=== PATIENT | female | born 2000 | race African-American/Black ===

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

== ENCOUNTER 2018-04-28 17:44 | Emergency (ER) | payer BC ==
--- NOTE | 2018-04-28 20:29 | XR ---
Single view EXAMINATION TYPE: XR foot complete RT DATE OF EXAM: 04/28/2018 COMPARISON: NONE HISTORY: Pain TECHNIQUE: 3 views FINDINGS: Metatarsals appear intact. I see no fracture nor dislocation. Joint spaces are normal. IMPRESSION: Negative right foot exam.
--- NOTE | 2018-04-28 20:31 | XR ---
EXAMINATION TYPE: XR ankle complete RT DATE OF EXAM: 04/28/2018 COMPARISON: NONE HISTORY: Ankle pain TECHNIQUE: 3 views FINDINGS: Ankle mortise is anatomic. I see no fracture nor dislocation. Joint spaces are normal. IMPRESSION: Negative right ankle exam.
--- NOTE | 2018-04-28 20:52 | ED ---
General Adult HPI - General Chief complaint: Extremity Injury, Lower Stated complaint: Foot Injury Time Seen by Provider: 04/28/18 19:43 Source: patient, family, RN notes reviewed Mode of arrival: ambulatory Limitations: no limitations - History of Present Illness Initial comments: 17-year-old female presents to the emergency department for a chief complaint of right foot pain times one day. Patient states that earlier this morning she hit her toes on a baseboard. Patient states it has been painful since that time. Patient states it has began to bruise as well. Patient was able to work today while walking on it. Patient states she wants to make sure it isn't broken. Patient did not sustain any other injuries or fall or hit her head. Patient has never had surgery on that foot before. Patient has no other complaints at this time including shortness of breath, chest pain, abdominal pain, nausea or vomiting, headache, or visual changes. - Related Data Home Medications Medication Instructions Recorded Confirmed No Known Home Medications 11/30/16 04/28/18 Allergies Allergy/AdvReac Type Severity Reaction Status Date / Time No Known Allergies Allergy Verified 04/28/18 19:19 Review of Systems ROS Statement: Those systems with pertinent positive or pertinent negative responses have been documented in the HPI. ROS Other: All systems not noted in ROS Statement are negative. Past Medical History Past Medical History: No Reported History History of Any Multi-Drug Resistant Organisms: MRSA Date of last positivie culture/infection: 12/19/2015 MDRO Source:: BUTTOCK Past Surgical History: No Surgical Hx Reported Past Psychological History: No Psychological Hx Reported Smoking Status: Current every day smoker Past Alcohol Use History: Occasional Past Drug Use History: Marijuana General Exam Limitations: no limitations General appearance: alert, in no apparent distress Head exam: Present: atraumatic, normocephalic, normal inspection Eye exam: Present: normal appearance. Absent: scleral icterus, conjunctival injection ENT exam: Present: normal exam, mucous membranes moist Neck exam: Present: normal inspection, full ROM. Absent: tenderness, meningismus, lymphadenopathy Respiratory exam: Present: normal lung sounds bilaterally. Absent: respiratory distress, wheezes, rales, rhonchi, stridor Cardiovascular Exam: Present: regular rate, normal rhythm, normal heart sounds. Absent: systolic murmur, diastolic murmur, rubs, gallop, clicks Extremities exam: Present: tenderness (Tenderness of the second and third digits as well as second and third metatarsal heads), normal capillary refill ( Capillary refill less than 2 seconds and pedal pulse 2+ in the right lower extremity), joint swelling (Patient has mild swelling and ecchymosis noted to the second and third digits of the right foot), other (Sensation intact to the second and third digits as well as the rest of the right foot). Absent: full ROM (Full range of motion of the right ankle. Patient has limited range of motion of the second and third digits due to pain), calf tenderness Neurological exam: Present: alert, oriented X3, CN II-XII intact Psychiatric exam: Present: normal affect, normal mood Course Vital Signs 04/28/18 19:15 Temperature 98.7 F Pulse Rate 86 Respiratory 20 Rate O2 Sat by Pulse 100 Oximetry Medical Decision Making - Medical Decision Making 17-year-old female process the emergency determine for chief complaint of right foot pain after stubbing foot on a baseboard. Patient has ecchymosis of the second and third digits and has limited range of motion of these digits. Full range motion of the right ankle. Neurovascular intact in the right lower extremity. X-ray of the right foot shows no fracture or dislocation. X-ray of the ankle is negative for fracture or dislocation. Patient likely has a contusion of the second and third toes. However patient is aware that if symptoms do not resolve in 7-10 day she may need repeat x-rays. I did offer giving patient a work note as well as crutches which she refuses. Patient was wrapped with an Oleg wrap. She was educated on rice therapy. She will follow- up in one to 2 days with primary care. She was also given orthopedics number in case she does not have resolving symptoms. Disposition Clinical Impression: Contusion of foot, right Disposition: HOME SELF-CARE Condition: Good Instructions: Foot Contusion (ED) Additional Instructions: Please rest ice and elevate the right foot. Take Motrin or Tylenol for pain. Please use Olge wrap as needed. Follow-up with primary care in 1-2 days. If symptoms worsen or do not resolve return to the emergency department. As discussed, you may need repeat x-rays in 7-10 days if symptoms are not improving. Is patient prescribed a controlled substance at d/c from ED?: No Referrals: Montez Caro MD [STAFF PHYSICIAN] - 1-2 days Time of Disposition: 20:50
[2018-04-28 21:07] VITALS: BP 123/78; PULSE 82; RESP 18; TEMP 98.3
== END 2018-04-28 21:07 | disposition home or self-care (01) ==
LOC: EC 17:44
DX: S90.31XA Contusion of right foot, initial encounter (principal); F17.200 Nicotine dependence, unspecified, uncomplicated; Z86.14 Personal history of Methicillin resistant Staphylococcus aureus infection; W22.8XXA Striking against or struck by other objects, initial encounter; Y92.009 Unspecified place in unspecified non-institutional (private) residence as the place of occurrence of the external cause
CPT/HCPCS: 99283

== ENCOUNTER 2019-07-28 05:15 | Inpatient (IN) | payer BC, OTHER ==
[2019-07-28] MEDS: LACTATED RINGERS 1,000 ML IV SCH ×2 (06:05→06:42)
[2019-07-28] MEDS ORDERED: LIDOCAINE 0.5% (PF) 5 MG/ML (50 ML SDV) SQ PRN (06:10)
[2019-07-28] MEDS ORDERED: TERBUTALINE 1 MG/ML VIAL SQ PRN (06:10)
[2019-07-28] MEDS ORDERED: CARBOPROST TROMETHAMINE 250 MCG/ML 1 ML AMP IM PRN (06:10)
[2019-07-28] MEDS ORDERED: OXYTOCIN 10 UNIT/ML 1 ML VIAL IM PRN (06:10)
[2019-07-28] MEDS ORDERED: METHYLERGONOVINE 0.2 MG/ML 1 ML AMP IM PRN (06:10)
[2019-07-28 06:27] VITALS: BMI 27.7
[2019-07-28 06:32] LABS: Basophils % (A) 0 %; Eosinophils # (A) 0.1 k/uL (0-0.7); Eosinophils % (A) 1 %; HCT 33.4 % (34.0-46.0); HGB 11.1 gm/dL (11.4-16.0); Lymphocytes # (A) 2.4 k/uL (1.0-4.8); Lymphocytes % (A) 23 %; MCH 30.4 pg (25.0-35.0); MCHC 33.2 g/dL (31.0-37.0); MCV 91.5 fL (80.0-100.0); Mean Platelet Volume 6.3; Monocytes # (A) 0.5 k/uL (0-1.0); Monocytes % (A) 4 %; Neutrophils # (A) 7.3 k/uL (1.3-7.7); Neutrophils % (A) 69 %; Platelet Count 272 k/uL (150-450); RBC 3.65 m/uL (3.80-5.40); RDW 12.7 % (11.5-15.5); WBC 10.6 k/uL (3.8-10.6)
[2019-07-28] MEDS ORDERED: ROPIVACAINE 5MG/ML 20ML VIAL ONE (06:47)
[2019-07-28] MEDS ORDERED: fentaNYL (PF) 50 MCG/ML 5 ML AMP ONE (06:47)
[2019-07-28] MEDS ORDERED: SODIUM CHLORIDE 0.9% 100 ML BAG ONE (06:47)
--- NOTE | 2019-07-28 06:49 | P.HPOB ---
History of Present Illness H&P Date: 07/28/19 Chief Complaint: Contractions This patient is a pleasant 19-year-old 1 para 0 female estimated date of confinement 08/05/2019 estimated gestational age 38-6/7 weeks who presents to labor and delivery with complaints of contractions since about 1:00 this morning. Patient's cervix initially was 3 cm dilated is now 5 simmers dilated in active labor. care is per Dr. Lepe appears to be uncomplicated. She does smoke cigarettes but has cut way back. Review of Systems Genitourinary: Reports Menstruation: Reports amenorrhea Past Medical History Past Medical History: No Reported History Additional Past Medical History / Comment(s): The father the baby is a sickle cell carrier. History of Any Multi-Drug Resistant Organisms: MRSA Date of last positivie culture/infection: 12/19/2015 MDRO Source:: BUTTOCK Past Surgical History: No Surgical Hx Reported Additional Past Surgical History / Comment(s): [place] teeth extraction Past Anesthesia/Blood Transfusion Reactions: No Reported Reaction Past Psychological History: No Psychological Hx Reported Smoking Status: Current every day smoker Past Alcohol Use History: Occasional Past Drug Use History: Marijuana - Past Family History Father Family Medical History: Diabetes Mellitus Medications and Allergies Home Medications Medication Instructions Recorded Confirmed Type Pnv No.95/Ferrous Fum/Folic AC 1 each PO DAILY 07/28/19 07/28/19 History [ Multivitamin Tablet] Allergies Allergy/AdvReac Type Severity Reaction Status Date / Time No Known Allergies Allergy Verified 07/28/19 05:21 Exam Vital Signs Temp Pulse Resp BP 07/28/19 06:22 97.6 F 84 18 129/70 Intake and Output 07/27/19 07/27/19 07/28/19 14:59 22:59 06:59 Other: Weight 85.275 kg - OBG Physical Exam Abdomen: bowel sounds normal, no diffuse tenderness, no bruit present, no guarding noted, no hepatomegaly, no splenomegaly, no mass Vulva: both: normal Vagina: normal moisture, no discharge Cervix: no lesion (Cervix is 5 cm dilated completely effaced -1 station), no discharge Uterus: enlarged (Fundal height in the office was 39 cm) Results blood work shows she is O positive, hepatitis B negative, RPR nonreactive, rubella immune, HIV is nonreactive, hemoglobin electrophoresis shows her to be with adult hemoglobin A. Anatomy ultrasounds normal. Quad screen testing was negative. Result Diagrams: 07/28/19 06:10 Abnormal Lab Results - Last 24 Hours (Table) 07/28/19 Range/Units 06:10 RBC 3.65 L (3.80-5.40) m/uL Hgb 11.1 L (11.4-16.0) gm/dL Hct 33.4 L (34.0-46.0) % Assessment and Plan Assessment: This is a pleasant 19-year-old 1 para 0 female 39-0/7 weeks gestation admitted to labor and delivery in active labor. Plan is pain control with epidural per patient request and anticipate vaginal delivery. (1) 39 weeks gestation of Current Visit: Yes Status: Acute Code(s): Z3A.39 - 39 WEEKS GESTATION OF SNOMED Code(s): 04529666 (2) Normal labor Current Visit: Yes Status: Acute Code(s): O80 - ENCOUNTER FOR FULL-TERM UNCOMPLICATED DELIVERY; Z37.9 - OUTCOME OF DELIVERY, UNSPECIFIED SNOMED Code(s): 08749672
[2019-07-28] MEDS ORDERED: OXYTOCIN 30 UNITS/500 ML NS 30 UNIT in SALINE 1 500ML.BAG IV SCH (07:30)
--- NOTE | 2019-07-28 10:44 | P.PROBDLV ---
Vaginal Delivery Note - . Vaginal Delivery Note: Normal spontaneous vaginal delivery viable male infant Apgars 9 and 9 delivery time was 1024 hrs. Please see dictated H&P for intimate details of this patient's admission. Brief summary this is a pleasant 19-year-old 1 para 0 female 38-6/7 weeks gestation admitted to labor and delivery with complaint of contractions was initially 3 cm dilated and does go to 5 cm dilated thought to be in active labor. Patient is artificial rupture membranes for clear fluid. Labor progresses and she does get an epidural for pain control. Patient pushes for approximately 15 or 20 minutes and pushes the head to the perineum. The posterior perineum was supported and we have controlled delivery of the infant's head over the intact perineum. Mouth and nares are bulb suctioned. There is no evidence of a nuchal cord. With gentle downward traction we then have deliver the anterior and posterior shoulder and rest this infant's body. This is a vigorous viable male infant Apgars are 9 and 9 delivery time is 1024 hrs. After delivery of the the umbilical cord is allowed to quit pulsating, it is then doubly clamped and cut. It appears to be trivascular. The placenta is then spontaneously delivered intact. Estimated blood loss is 150 mL. There is a superficial left vaginal laceration which is repaired with an interrupted 3-0 Vicryl and excellent reapproximation is noted. All counts are correct 3. There are no complications. Infant and mother stable delivery room.
[2019-07-28] MEDS ORDERED: SIMETHICONE 80 MG CHEWABLE PO PRN (10:45)
[2019-07-28] MEDS ORDERED: diphenhydrAMINE 25 MG CAP PO PRN (10:45)
[2019-07-28] MEDS ORDERED: ACETAMINOPHEN TAB 325 MG TAB PO PRN (10:45)
[2019-07-28] MEDS ORDERED: HYDROCORTISONE 2.5% RECTAL CREAM 30 GM TUBE RECTAL PRN (10:45)
[2019-07-28] MEDS ORDERED: OXYTOCIN 20 UNITS/1000 ML NS 1,000 ML IV SCH (10:45)
[2019-07-28] MEDS ORDERED: WITCH HAZEL 1 EACH MED..PAD TOPICAL PRN (10:45)
[2019-07-28] MEDS ORDERED: BISACODYL 10 MG SUPP RECTAL PRN (10:45)
[2019-07-28] MEDS ORDERED: ZOLPIDEM 5 MG TAB PO PRN (10:45)
[2019-07-28] MEDS ORDERED: diphenhydrAMINE 50 MG/ML 1 ML VIAL IVP PRN (10:45)
[2019-07-28] MEDS ORDERED: LANOLIN CREAM 5 GM TUBE TOPICAL PRN (10:45)
[2019-07-28] MEDS ORDERED: BENZOCAINE/MENTHOL SPRAY 1 GM/SPRAY AEROSOL TOPICAL PRN (10:45)
[2019-07-28] MEDS: IBUPROFEN 600 MG TAB PO PRN ×2 (11:00→19:39)
[2019-07-28] MEDS ORDERED: NICOTINE 7MG/24HR PATCH TRANSDERM STA (11:41)
[2019-07-28] MEDS ORDERED: INFLUENZA VACCINE (6 MOS+) 60 MCG/0.5 ML SYRINGE IM ONE (11:41)
[2019-07-28] MEDS ORDERED: SENNOSIDES-DOCUSATE SODIUM 1 EACH TAB PO SCH (20:00)
[2019-07-29] MEDS: IBUPROFEN 600 MG TAB PO PRN (04:47)
--- NOTE | 2019-07-29 06:51 | P.PNOBGVD ---
Subjective - Subjective Patient reports: Reports appetite normal, Reports voiding normally, Reports pain well controlled, Reports ambulating normally : doing well Objective - Latest Vital Signs Latest vital signs: Vital Signs Temp Pulse Resp BP 07/28/19 23:26 97.7 F 64 18 125/74 07/28/19 19:44 97.7 F 111 H 18 130/88 07/28/19 16:00 97.9 F 72 16 107/68 07/28/19 12:30 78 16 130/76 07/28/19 12:00 82 16 135/75 07/28/19 11:30 82 16 130/78 07/28/19 11:15 85 16 135/66 07/28/19 11:00 86 16 144/65 07/28/19 10:45 95 18 130/56 07/28/19 10:30 99.7 F H 101 H 16 188/72 07/28/19 07:22 97.5 F L 84 18 129/70 Intake and Output 07/28/19 07/28/19 07/29/19 14:59 22:59 06:59 Intake Total 600 Balance 600 Intake: Oral 600 Other: # Voids 1 2 - Exam Lungs: bilateral: normal Chest: Normal S1, Normal S2 Extremities: Present: normal Abdomen: Present: normal appearance, soft Uterus: Present: normal, firm Assessment and Plan Assessment: day #1. Patient is resting without complaints wishes to go home. Vital signs are stable she is afebrile. Uterus is firm nontender she's having normal lochia. My impression this is a normal course. Plan is to continue routine care discharge home later today (1) 39 weeks gestation of Current Visit: Yes Status: Acute Code(s): Z3A.39 - 39 WEEKS GESTATION OF SNOMED Code(s): 35806045 (2) Normal labor Current Visit: Yes Status: Acute Code(s): O80 - ENCOUNTER FOR FULL-TERM UNCOMPLICATED DELIVERY; Z37.9 - OUTCOME OF DELIVERY, UNSPECIFIED SNOMED Code(s): 56734097
--- NOTE | 2019-07-29 06:56 | P.DS ---
Providers Date of admission: 07/28/19 06:01 Expected date of discharge: 07/29/19 Attending physician: Rocco Lepe Primary care physician: Stated None - Discharge Diagnosis(es) (1) 39 weeks gestation of Current Visit: Yes Status: Acute (2) Normal labor Current Visit: Yes Status: Acute Hospital Course: Please see dictated H&P for intimate details of this patient's admission. Brief summary this is a 19-year-old 1 para 0 female 38-6/7 weeks gestation admitted to labor and delivery in active labor. Patient was on have a vaginal delivery viable male infant. Please see dictated delivery note. day #1 patient without complaints wishes to go home. Patient's felt be stable for discharge home follow up with Dr. Lepe in 6 weeks. Procedures: Normal spontaneous vaginal delivery Patient Condition at Discharge: Good Plan - Discharge Summary New Discharge Prescriptions: New Ibuprofen [Motrin] 600 mg PO Q6HR PRN #40 tab PRN Reason: Mild Pain Or Fever >= 100.5 No Action Pnv No.95/Ferrous Fum/Folic AC [ Multivitamin Tablet] 1 each PO DAILY Discharge Medication List Pnv No.95/Ferrous Fum/Folic AC [ Multivitamin Tablet] 1 each PO DAILY 07/28/19 [History] Ibuprofen [Motrin] 600 mg PO Q6HR PRN #40 tab 07/29/19 [Rx] Follow up Appointment(s)/Referral(s): Rocco Lepe DO [Doctor of Osteopathic Medicine] - 6 Weeks Patient Instructions/Handouts: Vaginal Delivery (DC) Activity/Diet/Wound Care/Special Instructions: No intercourse or anything per vagina for 6 weeks. Please call if any fever, chills, excessive vaginal bleeding, and/or abdominal pain. Discharge Disposition: HOME SELF-CARE
[2019-07-29 10:02] VITALS: BP 136/72; PULSE 72; RESP 16; TEMP 98
== END 2019-07-29 12:15 | disposition home or self-care (01) | DRG 807 ==
LOC: FBPOP 05:15 → 4FBP 06:01
PROVIDERS: ADMIT Obstetrics & Gynecology; ATTEND Obstetrics & Gynecology
PROC: 10E0XZZ Delivery of Products of Conception, External Approach (ICD-10-PCS; principal; 2019-07-28)
DX: O99.334 Smoking (tobacco) complicating childbirth (principal); Z37.0 Single live birth; O71.4 Obstetric high vaginal laceration alone; Z3A.38 38 weeks gestation of pregnancy; Z3A.39 39 weeks gestation of pregnancy; F17.210 Nicotine dependence, cigarettes, uncomplicated; Z83.2 Family history of diseases of the blood and blood-forming organs and certain disorders involving the immune mechanism; Z83.3 Family history of diabetes mellitus; Z86.14 Personal history of Methicillin resistant Staphylococcus aureus infection
CPT/HCPCS: 59025; 85025; 86850; 86900; 86901; 90686; 99213

== ENCOUNTER → 2021-10-21 | Outpatient (CLI) | payer OTHER ==
--- NOTE | 2021-10-21 09:12 | US ---
EXAMINATION TYPE: Transabdominal DATE OF EXAM: 10/21/2021 8:44 AM COMPARISON: NONE CLINICAL HISTORY: Z36.89 CONFIRM GESTATIONAL AGE. EXAM PERFORMED: Transabdominal (TA) EXAM MEASUREMENTS: GESTATIONAL AGE / DATING Physician Established: Not yet established Dates by LMP: 08/02/2021 (11 weeks/3 days) EDC: 05/09/2022 Dates by First Scan: No previous this is first scan Dates by Current Scan for: (11 weeks/4 days) EDC: 05/08/2022 MATERNAL ANATOMY Uterus: 10.1 x 7.9 x 10.6 cm Right Ovary: 4.4 x 2.7 x 1.2 cm Left Ovary: 3.6 x 3.0 x 2.7 cm Post CDS / Adnexa: wnl Presence of free fluid: none GESTATION / SURVEY CRL: 4.8 cm (11 weeks/4 days) Heart Rate: 165 bpm Rhythm: Normal IUP: Viable IUP Date of LMP: 08/02/2021 Viable IUP that correlates with LMP. IMPRESSION: Single viable intrauterine .
== END | disposition home or self-care (01) ==
LOC: RADUSWWP 08:15
PROVIDERS: ATTEND Obstetrics & Gynecology
DX: Z36.89 Encounter for other specified antenatal screening (principal); Z3A.11 11 weeks gestation of pregnancy
CPT/HCPCS: 76801

== ENCOUNTER 2024-03-05 13:16 | Emergency (ER) | payer OTHER ==
[2024-03-05 13:21] VITALS: TEMP 98
--- NOTE | 2024-03-05 13:32 | ED ---
Headache HPI - General Chief Complaint: Headache Stated Complaint: headache,feet and hand numbness Time Seen by Provider: 03/05/24 13:30 Source: patient, RN notes reviewed Mode of arrival: ambulatory Limitations: no limitations - History of Present Illness Initial Comments: This is a 23-year-old female with no significant past medical history presents emergency department chief complaint of a headache over the past few days. Patient is also endorsing bilateral hand and bilateral foot paresthesias as well. She states that her headache is located in the front of her forehead and radiates into the occipital region. She endorses photophobia, nausea. Denies tenderness, changes in vision, blurry vision. She states that she has a history of headaches but denies history of migraines. Patient does not take any prophylactic report of therapy for her migraines. - Related Data Home Medications Medication Instructions Recorded Confirmed Pnv No.95/Ferrous Fum/Folic AC 1 each PO DAILY 07/28/19 05/04/22 [ Multivitamin Tablet] Previous Rx's Medication Instructions Recorded Ibuprofen [Motrin] 600 mg PO Q6HR PRN #60 tab 05/05/22 Cephalexin [Keflex] 500 mg PO Q6HR #40 cap 03/05/24 Allergies Allergy/AdvReac Type Severity Reaction Status Date / Time No Known Allergies Allergy Verified 03/05/24 13:20 Review of Systems ROS Statement: Those systems with pertinent positive or pertinent negative responses have been documented in the HPI. ROS Other: All systems not noted in ROS Statement are negative. Past Medical History Past Medical History: No Reported History Additional Past Medical History / Comment(s): The father the baby is a sickle cell carrier. Obstetric history: She has had one spontaneous 1 vaginal delivery. She's had care with Dr. Kingsley. Blood type is O+, and base negative, rubella immune, hepatitis B negative, GBS negative, HIV nonreactive. RPR nonreactive. History of Any Multi-Drug Resistant Organisms: MRSA Date of last positivie culture/infection: 12/19/2015 MDRO Source:: BUTTOCK Past Surgical History: No Surgical Hx Reported Additional Past Surgical History / Comment(s): [place] teeth extraction Past Anesthesia/Blood Transfusion Reactions: No Reported Reaction Past Psychological History: Anxiety Smoking Status: Never smoker Past Alcohol Use History: None Reported Past Drug Use History: None Reported - Past Family History Father Family Medical History: Diabetes Mellitus General Exam Limitations: no limitations General appearance: alert, in no apparent distress Head exam: Present: atraumatic, normocephalic, normal inspection Eye exam: Present: normal appearance, PERRL, EOMI. Absent: scleral icterus, conjunctival injection, periorbital swelling ENT exam: Present: normal exam, mucous membranes moist Neck exam: Present: normal inspection. Absent: tenderness, meningismus, lymphadenopathy Respiratory exam: Present: normal lung sounds bilaterally. Absent: respiratory distress, wheezes, rales, rhonchi, stridor Cardiovascular Exam: Present: regular rate, normal rhythm, normal heart sounds. Absent: systolic murmur, diastolic murmur, rubs, gallop, clicks GI/Abdominal exam: Present: soft, normal bowel sounds. Absent: distended, tenderness, guarding, rebound, rigid Extremities exam: Present: normal inspection, full ROM, normal capillary refill. Absent: tenderness, pedal edema, joint swelling, calf tenderness Back exam: Present: normal inspection Neurological exam: Present: alert, oriented X3, CN II-XII intact Psychiatric exam: Present: normal affect, normal mood Skin exam: Present: warm, dry, intact, normal color. Absent: rash Course Vital Signs 03/05/24 03/05/24 13:18 15:48 Temperature 98.0 F Pulse Rate 87 79 Respiratory 16 18 Rate Blood Pressure 132/73 129/75 O2 Sat by Pulse 99 98 Oximetry Medical Decision Making - Medical Decision Making Was pt. sent in by a medical professional or institution (DAVID Quintanilla, FOSTER CARE SOCIAL WORKER, urgent care, hospital, or long term...) When possible be specific @ -No Did you speak to anyone other than the patient for history (EMS, parent, family, police, friend...)? What history was obtained from this source @ -No Did you review nursing and triage notes (agree or disagree)? Why? @ -I reviewed and agree with nursing and triage notes Were old charts reviewed (outside hosp., previous admission, EMS record, old EKG, old radiological studies, urgent care reports/EKG's, long term records)? Report findings @ -No old charts were reviewed Differential Diagnosis (chest pain, altered mental status, abdominal pain women, abdominal pain men, vaginal bleeding, weakness, fever, dyspnea, syncope, headache, dizziness, GI bleed, back pain, seizure, CVA, palpatations, mental health, musculoskeletal)? @ -Differential Headache: Migraine, tension, cluster, carbon monoxide, central venous thrombosis, pension karma temporal arteritis, acute closure glaucoma, intercranial hemorrhage, mastoiditis, sinusitis, head injury, this is not meant to be an all-inclusive list. EKG interpreted by me (3pts min.). @ -None X-rays interpreted by me (1pt min.). @ -None done CT interpreted by me (1pt min.). @ -None done U/S interpreted by me (1pt. min.). @ -None done What testing was considered but not performed or refused? (CT, X-rays, U/S, labs)? Why? @ -CT imaging of the brain without contrast was considered but patient refused. Imaging was ordered and pending results of urine hCG which was negative on discussion with patient she is declining imaging at this time due to the prolonged wait. States that she will follow-up with her primary care provider for further evaluation of her arrival to the emergency department. What meds were considered but not given or refused? Why? @ -None Did you discuss the management of the patient with other professionals (professionals i.e. , PA, FOSTER CARE SOCIAL WORKER, lab, RT, psych nurse, child protective services social worker, city bus driver, teacher, training systems officer, immigration case worker)? Give summary @ -No Was smoking cessation discussed for >3mins.? @ -No Was critical care preformed (if so, how long)? @ -No Were there social determinants of health that impacted care today? How? (Homelessness, low income, unemployed, alcoholism, drug addiction, transportation, low edu. Level, literacy, decrease access to med. care, snf, rehab)? @ -No Was there de-escalation of care discussed even if they declined (Discuss DNR or withdrawal of care, Hospice)? DNR status @ -No What co-morbidities impacted this encounter? (DM, HTN, Smoking, COPD, CAD, Cancer, CVA, ARF, Chemo, Hep., AIDS, mental health diagnosis, sleep apnea, mor bid obesity)? @ -None Was patient admitted / discharged? Hospital course, mention meds given and rou te, prescriptions, significant lab abnormalities, going to OR and other pertinent info. @ -discharged. 23-year-old female with headache and paresthesias. On examination no acute neurological deficits noted. At this time patient will be evaluated. Laboratory studies in addition to urinalysis. Patient will be sent for CT imaging of the brain after negative test. Patient sitting with this plan. She will also receive IV fluids and medications to aid in headache relief. On reevaluation, patient states that her headache is significantly improved. Patient is refusing CT imaging of the brain stating that she has been in the emergency department for too long and would like to follow-up with her primary care provider outpatient for further evaluation. additionally, CBC, CMP unremarkable. Urinalysis shows signs of infection including large leukocyte esterase, greater than 182 white blood cells, and bacteria. hCG negative. Fashion with patient at bedside the risks of leaving the emergency department without CT imaging and patient verbalized understanding. All questions have been answered at bedside and strict return parameters discussed with the patient she is verbalized understanding. Case discussed with my attending Dr. Romo Undiagnosed new problem with uncertain prognosis? @ -No Drug Therapy requiring intensive monitoring for toxicity (Heparin, Nitro, Insulin, Cardizem)? @ -No Were any procedures done? @ -No Diagnosis/symptom? @ -Urinary tract infection, migraine headache Acute, or Chronic, or Acute on Chronic? @ -acute Uncomplicated (without systemic symptoms) or Complicated (systemic symptoms)? @ -uncomplicated Side effects of treatment? @ -No Exacerbation, Progression, or Severe Exacerbation? @ -No Poses a threat to life or bodily function? How? (Chest pain, [place], [place], pneumonia, PE, COPD, DKA, ARF, appy, cholecystitis, CVA, Diverticulitis, Homicidal, Suicidal, threat to staff... and all critical care pts) @ -No - Lab Data Result diagrams: 03/05/24 13:46 03/05/24 13:46 Lab Results 03/05/24 03/05/24 03/05/24 Range/Units 13:46 13:46 14:02 WBC 8.0 (3.8-10.6) k/uL RBC 3.85 (3.80-5.40) m/uL Hgb 12.6 (11.4-16.0) gm/dL Hct 39.8 (34.0-46.0) % MCV 103.5 H (80.0-100.0) fL MCH 32.7 (25.0-35.0) pg MCHC 31.6 (31.0-37.0) g/dL RDW 14.6 (11.5-15.5) % Plt Count 248 (150-450) k/uL MPV 7.8 Neutrophils % 65 % Lymphocytes % 27 % Monocytes % 4 % Eosinophils % 2 % Basophils % 0 % Neutrophils # 5.2 (1.3-7.7) k/uL Lymphocytes # 2.2 (1.0-4.8) k/uL Monocytes # 0.3 (0-1.0) k/uL Eosinophils # 0.1 (0-0.7) k/uL Basophils # 0.0 (0-0.2) k/uL Macrocytosis Slight Sodium 140 (137-145) mmol/L Potassium 4.4 (3.5-5.1) mmol/L Chloride 109 H (98-107) mmol/L Carbon Dioxide 24 (22-30) mmol/L Anion Gap 7 mmol/L BUN 15 (7-17) mg/dL Creatinine 0.78 (0.52-1.04) mg/dL Est GFR (CKD-EPI)AfAm >90 (>60 ml/min/1.73 sqM) Est GFR (CKD-EPI)NonAf >90 (>60 ml/min/1.73 sqM) Glucose 89 (74-99) mg/dL Calcium 9.8 (8.4-10.2) mg/dL Magnesium 1.8 (1.6-2.3) mg/dL Total Bilirubin 0.8 (0.2-1.3) mg/dL AST 26 (14-36) U/L ALT 17 (4-34) U/L Alkaline Phosphatase 51 (38-126) U/L Total Protein 7.4 (6.3-8.2) g/dL Albumin 4.5 (3.5-5.0) g/dL Urine Color Light Yellow Urine Appearance Turbid H (Clear) Urine pH 5.5 (5.0-8.0) Ur Specific [place] 1.016 (1.001-1.035) Urine Protein Trace H (Negative) Urine Glucose (UA) Negative (Negative) Urine Ketones Negative (Negative) Urine Blood Small H (Negative) Urine Nitrite Negative (Negative) Urine Bilirubin Negative (Negative) Urine Urobilinogen <2.0 (<2.0) mg/dL Ur Leukocyte Esterase Large H (Negative) Urine RBC 11 H (0-5) /hpf Urine WBC >182 H (0-5) /hpf Urine WBC Clumps Few H (None) /hpf Ur Squamous Epith Cells 9 H (0-4) /hpf Urine Bacteria Rare H (None) /hpf Urine Mucus Rare H (None) /hpf Urine HCG, Qual (Not Detectd) 03/05/24 Range/Units 14:02 WBC (3.8-10.6) k/uL RBC (3.80-5.40) m/uL Hgb (11.4-16.0) gm/dL Hct (34.0-46.0) % MCV (80.0-100.0) fL MCH (25.0-35.0) pg MCHC (31.0-37.0) g/dL RDW (11.5-15.5) % Plt Count (150-450) k/uL MPV Neutrophils % % Lymphocytes % % Monocytes % % Eosinophils % % Basophils % % Neutrophils # (1.3-7.7) k/uL Lymphocytes # (1.0-4.8) k/uL Monocytes # (0-1.0) k/uL Eosinophils # (0-0.7) k/uL Basophils # (0-0.2) k/uL Macrocytosis Sodium (137-145) mmol/L Potassium (3.5-5.1) mmol/L Chloride (98-107) mmol/L Carbon Dioxide (22-30) mmol/L Anion Gap mmol/L BUN (7-17) mg/dL Creatinine (0.52-1.04) mg/dL Est GFR (CKD-EPI)AfAm (>60 ml/min/1.73 sqM) Est GFR (CKD-EPI)NonAf (>60 ml/min/1.73 sqM) Glucose (74-99) mg/dL Calcium (8.4-10.2) mg/dL Magnesium (1.6-2.3) mg/dL Total Bilirubin (0.2-1.3) mg/dL AST (14-36) U/L ALT (4-34) U/L Alkaline Phosphatase (38-126) U/L Total Protein (6.3-8.2) g/dL Albumin (3.5-5.0) g/dL Urine Color Urine Appearance (Clear) Urine pH (5.0-8.0) Ur Specific [place] (1.001-1.035) Urine Protein (Negative) Urine Glucose (UA) (Negative) Urine Ketones (Negative) Urine Blood (Negative) Urine Nitrite (Negative) Urine Bilirubin (Negative) Urine Urobilinogen (<2.0) mg/dL Ur Leukocyte Esterase (Negative) Urine RBC (0-5) /hpf Urine WBC (0-5) /hpf Urine WBC Clumps (None) /hpf Ur Squamous Epith Cells (0-4) /hpf Urine Bacteria (None) /hpf Urine Mucus (None) /hpf Urine HCG, Qual Not Detected (Not Detectd) Disposition Clinical Impression: Headache, UTI (urinary tract infection), Paresthesia of hand, bilateral Disposition: HOME SELF-CARE Condition: Good Instructions (If sedation given, give patient instructions): Urinary Tract Infection in Women (DC) Additional Instructions: Return to the emergency department if your symptoms worsen or not improved. Complete full course of antibiotics as prescribed. Recommend that you follow-up with your primary care provider in the next week for further evaluation. Prescriptions: Cephalexin [Keflex] 500 mg PO Q6HR #40 cap Is patient prescribed a controlled substance at d/c from ED?: No Referrals: None,Stated [Primary Care Provider] - 1-2 days Time of Disposition: 15:44
[2024-03-05] MEDS: SODIUM CHLORIDE 0.9% 1,000 ML IV STA (13:43)
[2024-03-05 13:55] LABS: Basophils % (A) 0 %; Eosinophils # (A) 0.1 k/uL (0-0.7); Eosinophils % (A) 2 %; HCT 39.8 % (34.0-46.0); HGB 12.6 gm/dL (11.4-16.0); Lymphocytes # (A) 2.2 k/uL (1.0-4.8); Lymphocytes % (A) 27 %; MCH 32.7 pg (25.0-35.0); MCHC 31.6 g/dL (31.0-37.0); MCV 103.5 fL (80.0-100.0); Macrocytosis Slight; Mean Platelet Volume 7.8; Monocytes # (A) 0.3 k/uL (0-1.0); Monocytes % (A) 4 %; Neutrophils # (A) 5.2 k/uL (1.3-7.7); Neutrophils % (A) 65 %; Platelet Count 248 k/uL (150-450); RBC 3.85 m/uL (3.80-5.40); RDW 14.6 % (11.5-15.5)
[2024-03-05 14:21] LABS: ALT 17 U/L (4-34); AST 26 U/L (14-36); African American GFR (CKD) >90 (>60 ml/min/1.73 sqM); Albumin 4.5 g/dL (3.5-5.0); Alkaline Phosphatase 51 U/L (38-126); Anion Gap 7 mmol/L; Blood Urea Nitrogen 15 mg/dL (7-17); Calcium 9.8 mg/dL (8.4-10.2); Carbon Dioxide 24 mmol/L (22-30); Chloride 109 mmol/L (98-107); Glucose 89 mg/dL (74-99); Magnesium 1.8 mg/dL (1.6-2.3); Non-African American GFR(CKD) >90 (>60 ml/min/1.73 sqM); Potassium 4.4 mmol/L (3.5-5.1); Sodium 140 mmol/L (137-145); Total Bilirubin 0.8 mg/dL (0.2-1.3); Total Protein 7.4 g/dL (6.3-8.2)
[2024-03-05 14:21] LABS: Appearance,Urine Turbid (Clear); Bacteria,Urine Rare /hpf; Bilirubin,Urine Negative (Negative); Blood,Urine Small (Negative); Color,Urine Light Yellow; Glucose,Urine (UA) Negative (Negative); Ketones,Urine Negative (Negative); Leukocyte Esterase,Urine Large (Negative); Mucus,Urine Rare /hpf; Nitrite,Urine Negative (Negative); PH, Urine 5.5 (5.0-8.0); Protein,Urine Trace (Negative); RBC,Urine 11 /hpf (0-5); Specific Gravity,Urine 1.016 (1.001-1.035); Squamous Epithelial Cell,Urine 9 /hpf (0-4); Urobilinogen,Urine <2.0 mg/dL (<2.0); WBC,Urine >182 /hpf (0-5)
[2024-03-05 15:49] VITALS: BP 129/75; PULSE 79; RESP 18
== END 2024-03-05 15:52 | disposition home or self-care (01) ==
LOC: EC 13:16
DX: G43.909 Migraine, unspecified, not intractable, without status migrainosus (principal); R20.2 Paresthesia of skin; N39.0 Urinary tract infection, site not specified
CPT/HCPCS: 36415; 80053; 81001; 81025; 83735; 85025; 96360; 96361; 99284

== ENCOUNTER 2024-08-06 06:12 | Emergency (ER) | payer SELFPAY ==
[2024-08-06 06:19] VITALS: TEMP 97.8
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
--- NOTE | 2024-08-06 06:37 | XR ---
EXAMINATION TYPE: XR foot complete LT DATE OF EXAM: 08/06/2024 CLINICAL HISTORY: Left foot pain after injury TECHNIQUE: Frontal, lateral, and oblique images of the left foot are obtained. COMPARISON: None FINDINGS: There is acute nondisplaced spiral type fracture through the distal half of the first proxi mal phalanx. Joint spaces are preserved. Overlying soft tissue is unremarkable IMPRESSION: There is acute nondisplaced spiral type fracture through distal one half of the first pr oximal phalanx. [facility], , 08/06/2024 6:35 AM
[2024-08-06 07:06] VITALS: BP 129/82; PULSE 85; RESP 18
== END 2024-08-06 07:05 | disposition home or self-care (01) ==
LOC: EC 06:12
DX: S92.912A Unspecified fracture of left toe(s), initial encounter for closed fracture (principal); F17.200 Nicotine dependence, unspecified, uncomplicated; Y04.0XXA Assault by unarmed brawl or fight, initial encounter
CPT/HCPCS: 99283